=== PATIENT | female | born 1990 ===

== ENCOUNTER 2016-05-28 08:20 | Inpatient (IN) | payer MEDICAID, OTHER ==
[2016-05-28] MEDS: Lactated Ringer's 1,000 ML IV SCH ×6 (09:30→18:35)
[2016-05-28] MEDS ORDERED: Lactated Ringer's 1,000 ML IV SCH (14:15)
[2016-05-28] MEDS ORDERED: ceFAZolin 2 GM in Sodium Chloride 0.9% 100 ML IVPB ONE (14:43)
[2016-05-28 14:47] LABS: BASO % 0.5 % (0.0-2.0); EOS # 0.1 K/uL (0.0-0.7); EOS % 0.6 % (0.0-4.0); HEMATOCRIT 33.8 % (34.0-47.0); LYMPH # 1.9 K/uL (1.0-4.3); MEAN CELL VOLUME 90.8 fl (81.0-99.0); MEAN CORPUSCULAR HEMOGLOBIN 29.5 pg (27.0-31.0); MEAN CORPUSCULAR HGB CONC 32.5 g/dL (33.0-37.0); MEAN PLATELET VOLUME 9.7 fl (7.2-11.7); MONO # 0.7 K/uL (0.0-0.8); MONO % 8.6 % (0.0-10.0); NEUT # 5.9 K/uL (1.8-7.0); NEUT % 68.3 % (50.0-75.0); NRBC % 0.1 % (0.0-0.0); RED CELL DISTRIBUTION WIDTH 14.3 % (11.5-14.5); WHITE BLOOD COUNT 8.6 K/uL (4.8-10.8)
--- NOTE | 2016-05-28 14:53 | OBPN ---
Datetime: 05/28/2016 08:45 IP Progress Impression: Normal progression of labor; Reactive non-stress test IP Informed Consent Obtain: Section Delivery Membranes, Provider: Intact FHR - Baseline A Provider: 130 Gestation - Est Wks by US: 36.1 IP Progress Note Comment: Patient went well patient states her contractions are increasing in intens ity requiring more frequently she denies any vaginal bleeding or rupture membranes she reports good f etal movement heart rate reactive accelerations no decelerations Tocometer contractions occurring every 2 minutes Sterile vaginal exam patient noted to be 2-3 cm bulging membranes Assessment and plan intrauterine at 36 weeks previous delivery in labor Discussed operative delivery versus trial of laborpatient opted for repeat section discus sed the risks benefits and alternatives to surgery the patient was given the opportunity ask question s all questions answered procedure Loop Medicare We discussed the risks of prematurity poor feeding j aundice respiratory problems. She was given the opportunity ask questions all questions answered her and partner agree with plan of care will proceed with Repeat operative delivery NICHD Accel Fetus A IP Provider: [id number] FHR Category Provider Fetus A: Category I NICHD Variability Prov Fetus A: Moderate 6-25bpm Dilatation, Provider: 0 Effacement, Provider: thick NICHD Decel Fetus A IP Provider: None Datetime: 02/08/2016 17:34 Contraction Comments Provider: none Vital Signs Provider: Reviewed; Within Normal Limits Station, Provider: -4
[2016-05-28 15:20] VITALS: BP 125/76; PULSE 92; RESP 18; TEMP 98; O2SAT 100
[2016-05-28] MEDS ORDERED: Oxytocin 30 units/LR 500ML 500 ML IV ONE ×2 (15:38→18:17)
[2016-05-28] MEDS ORDERED: Morphine 1 mg/ml preservative-free Inj(Duramorph) ONE (15:53)
[2016-05-28] MEDS ORDERED: Propofol 10 mg/ml Inj (20 ML) ONE ×2 (16:26→16:36)
[2016-05-28] MEDS ORDERED: Oxytocin 10 Units/ml Inj ONE (16:39)
[2016-05-28] MEDS ORDERED: DiphenhydrAMINE 50 mg/ml Inj IVP PRN (16:59)
[2016-05-28] MEDS ORDERED: Oxycodone/Acetaminophen 5/325 mg Tab PO PRN ×3 (17:49→19:48)
--- NOTE | 2016-05-28 19:30 | OP ---
PROCEDURE DATE: 05/28/2016 PREOPERATIVE DIAGNOSES: Intrauterine at 36 weeks, history of previous section, in labor with cervical changes. POSTOPERATIVE DIAGNOSES: Intrauterine at 36 weeks, history of previous section, i n labor with cervical changes. OPERATION PERFORMED: Repeat low flap transverse section by Pfannenstiel skin incision. SURGEON: Cortney Fay MD ANESTHESIA: Spinal administered by Dr. Lundberg. ASSISTANT CHIEF OF POLICE: Dr. Tasia Fay. ESTIMATED BLOOD LOSS: 800 mL. Lin catheter put out approximately 200 mL. The patient received approximately 1500 mL of D5LR intr aoperatively. OPERATIVE FINDINGS: A baby boy, vertex presentation, weighing 2720 grams, Apgars 9 and 9. Normal ut erus, tubes, and ovaries were identified. Dr. Tasia Fay was the assistant superintendent in the procedure. She was helpful in creating exposure, obta ining hemostasis, delivering the and closure of the patient. The procedure would not have bee n possible without her. PROCEDURE: After informed consent was obtained, the patient was taken to the operating room where emily brown was given spinal anesthesia. She was then prepped and draped in the usual sterile fashion with a l eftward tilt. A Pfannenstiel skin incision was then made with a scalpel and carried down to the unde rlying layer of fascia. The fascia was nicked in the midline. The fascial incision was then extende d laterally with the curved bandage scissors. Superior aspect of the fascial incision was then grasp ed with Beverly clamps, elevated up, and the rectus muscles dissected off using sharp and blunt dissec tion. Attention was then turned to the inferior aspect of the fascial incision which in a similar fa shion was grasped with Beverly clamps, elevated up, and the rectus muscles were dissected off using renetta th sharp and blunt dissection. The rectus muscles were then in the midline, the peritoneum identified, entered sharply with the Metzenbaum scissors. Peritoneal incision was then extended sup eriorly and inferiorly with good visualization of the bladder. The bladder blade was inserted. The vesicouterine and peritoneum was identified and entered sharply with the Metzenbaum scissors. The in cision was then extended laterally and the bladder flap was created digitally. A low transverse inci raine was then made with the scalpel, incision was then extended laterally with the bandage scissors. The infant's head was then delivered atraumatically. The nose and mouth were suctioned with DeLee s uction trap. The cord was clamped and cut. The infant was then handed off to waiting pediatricians. The placenta was then removed manually. The uterus was exteriorized and cleared of all clots and de bris. The uterine incision was repaired with 0 Vicryl in a running fashion. Second layer of the rosalinda e suture was used to obtain excellent hemostasis. The abdomen was then copiously irrigated. The irr igant was removed with a suction device. The gutters were cleared of all clots and debris. The uter us was then returned to the abdomen and the peritoneum was closed with 2-0 Vicryl in a running fashio n. The muscles were reapproximated with 0 Vicryl in interrupted fashion. The fascia was closed with 0 Vicryl in a running fashion. The skin was closed with 4-0 on a Miguel needle. All sponge, lap, ne edle, and instrument counts correct x 2 and the patient was taken to recovery room in awake and stabl e condition. Cortney Fay MD cc: [id number] TT: 05/28/2016 19:29:46 edith
--- NOTE | 2016-05-28 20:15 | OBDS ---
DELIVERY PERSONNEL Delivery Doctor: Sandra Fay MD [employer] Insurance Claims Adjuster: Humaira Horan RN/ Odessa Valdez rn Anesthesiologist: Don Deng MD Resident: Tasia frias MD MATERNAL INFORMATION Delivery Anesthesia: Spinal Medications in Delivery: pitocin 30/500 Estimated Blood Loss (ml): 800 Placenta Cultured: No Maternal Complications: None Provider Comments: See operative report LABOR SUMMARY EDC: 06/24/2016 00:00 No. Babies in Womb: 1 Attempted: No Labor Anesthesia: Intrathecal LABOR INFORMATION Reason for Induction: Not Applicable Onset of Labor: 05/28/2016 07:00 Oxytocin: N/A Group B Beta Strep: Done, Result Unknown Antibiotics # of Doses: 1 Antibiotics Time of Last Dose: 1410 Steroids Given: None Reason Steroids Not Administered: Not Applicable MEMBRANES Membranes Rupture Method: Artificial Rupture of Membranes: 05/28/2016 16:32 Length of Rupture (hrs): 0.00 Amniotic Fluid Color: Clear Amniotic Fluid Amount: Moderate Amniotic Fluid Odor: None STAGES OF LABOR Stage 3 hrs: 0 Stage 3 min: 1 Total Time in Labor hrs: 9 Total Time in Labor min: 33 VAGINAL DELIVERY Episiotomy: None Laceration Extension: N/A Laceration Type: None Laceration Repair: Not Applicable Sponge Count Correct: N/A CSECTION DELIVERY Primary Indication: Other Other Primary Indication: LABOR Secondary Indication: Repeat Elective CSection Urgency: Emergency CSection Incidence: Repeat Labor: Labor Elective: N/A CSection Incision: Lower Uterine Transverse BABY A INFORMATION Infant Delivery Date/Time: 05/28/2016 16:32 Method of Delivery: Born in Route : No : N/A Forceps: N/A Vacuum Extraction: N/A Shoulder Dystocia : Yes SHOULDER DYSTOCIA BABY A Infant Delivery Date/Time: 05/28/2016 16:32 PRESENTATION/POSITION BABY A Presentation: Cephalic Cephalic Presentation: Vertex Vertex Position: Left Occipital Anterior Breech Presentation: N/A PLACENTA INFORMATION BABY A Placenta Delivery Time : 05/28/2016 16:33 Placenta Method of Delivery: Manual Removal Placenta Status: Delivered SCORES BABY A Heart Rate 1 min: >100 bpm Resp Effort 1 min: Good Cry Reflex Irritability 1 min: Cough or Sneeze or Pulls Away Muscle Tone 1 min: Active Motion Color 1 min: Body Godfrey, Extremities Blue Resuscitation Effort 1 min: N/A SCORE 1 MIN: 9 Heart Rate 5 min: >100 bpm Resp Effort 5 min: Good Cry Reflex Irritability 5 min: Cough or Sneeze or Pulls Away Muscle Tone 5 min: Active Motion Color 5 min: Body Godfrey, Extremities Blue Resuscitation Effort 5 min: N/A SCORE 5 MIN: 9 INFORMATION BABY A Gestational Age at Delivery: 36.1 Gestational Status: Outcome : Liveborn Infant Condition : Stable Infant Sex: Male IDENTIFICATION/MEDS BABY A ID Band Number: [id number] ID Band Location: Left Leg; Left Arm WEIGHT/LENGTH BABY A Birthweight (gms): 2720 Infant Weight (lb): 6 Weight (oz): 0 CORD INFORMATION BABY A No. Cord Vessels: 3 Nuchal Cord : N/A Cord Blood Taken: Yes Suction: Mouth; Nose ASSESSMENT BABY A Infant Complications: None Physical Findings at Delivery: Within Normal Limits Infant Respirations: Appears Normal Research Manufacturing Operator/ALS Called : No Infant Care By: DR hodge Transferred To: Remains with Mother
[2016-05-28] MEDS ORDERED: Measles, Mumps, and Rubella 1 EA VIAL SC ONE (20:23)
[2016-05-28] MEDS: Oxycodone/Acetaminophen 5/325 mg Tab PO PRN (21:44)
[2016-05-29] MEDS: Lactated Ringer's 1,000 ML IV SCH ×2 (04:14→11:35)
[2016-05-29] MEDS: Oxycodone/Acetaminophen 5/325 mg Tab PO PRN ×4 (07:11→21:07)
[2016-05-29 07:17] LABS: HEMATOCRIT 23.7 % (34.0-47.0); MEAN CELL VOLUME 89.1 fl (81.0-99.0); MEAN CORPUSCULAR HEMOGLOBIN 29.6 pg (27.0-31.0); MEAN CORPUSCULAR HGB CONC 33.3 g/dL (33.0-37.0); WHITE BLOOD COUNT 9.6 K/uL (4.8-10.8)
[2016-05-30] MEDS ORDERED: Simethicone 80 mg Chewtab PO PRN (06:42)
--- NOTE | 2016-05-30 08:41 | OBPPN ---
Datetime: 05/30/2016 08:10 PP Pain Prov: Within normal limits PP Nausea Prov: Denies Datetime: 05/29/2016 08:01 PP Flatus Prov: No PP BM Prov: No PP Abdomen/Uterus Prov: Normal PP Lochia Prov: Normal PP Comments Phys Exam Prov: dressing intact. PP Impression Prov: Normal progression PP Plan Prov: Continue present management PP Progress Note Prov: POD#1 Patient reports pain is well controlled. Breast and bottle feeding. Tolerating regular diet. Lin was removed this morning, pt has not voided yet. Has not tried to void yet. o: as above a: POD#1 s/p repeat . cbc revealed h.9, down from 11.0. Patient asymptomat ic but has not ambulated. p: pain control -encouraged ambulation, with caution. If dizziness or palpitations patient to inform nurse -encouraged continued -monitor urine output -mmr ordered Rubin Ronquillo PGY1 IP PP Procedures: None Vital Signs Provider PP: Reviewed Datetime: 05/28/2016 14:48 PP Breasts Prov: Normal PP Heart Prov: Normal PP Lungs Prov: Normal PP Vulva/Perineum Prov: Normal PP CVA Tenderness Prov: Normal PP Extremities Prov: Normal
[2016-05-30] MEDS ORDERED: Magnesium Hydroxide Susp 30 ml UD PO ONE (09:28)
--- NOTE | 2016-05-30 10:35 | OBPPN ---
Datetime: 05/30/2016 08:10 PP Flatus Prov: Yes PP BM Prov: No PP Heart Prov: Normal PP Lungs Prov: Normal PP Abdomen/Uterus Prov: Normal PP Lochia Prov: Normal PP Vulva/Perineum Prov: Normal PP CVA Tenderness Prov: Normal PP Extremities Prov: Normal PP C/S Incision Prov: Normal PP Impression Prov: Normal progression PP Plan Prov: Continue present management PP Progress Note Prov: OB Hospitalist photonic laboratory technician Pt seen and examined by me on rounds this AM. Agree with note. CURRY Vital Signs Provider PP: Reviewed
[2016-05-31] MEDS ORDERED: Measles, Mumps, and Rubella 1 EA VIAL SC ONE (08:33)
--- NOTE | 2016-05-31 08:42 | OBDCSUM ---
Datetime: 05/31/2016 07:31 Discharged to, Provider: Home Follow up at, Provider: Kurt Lopez Disch Instr Activity: Normal activity Disch Instr Diet: Regular Discharge Instructions, Provider: Routine instructions given Discharge Diagnosis, Provider: Term Delivered Discharge Time: 05/31/2016 07:31 Follow up in weeks, Provider: 1 week: wound check Disch Referrals: None Disch Activity Restrictions: No lifting; No sexual activity; Nothing in vagina - Howard, tampon s, douche Discharge Comment, Provider: doing well postoperatively rx for motrin, colace, iron, percocet given
--- NOTE | 2016-05-31 08:42 | OBPPN ---
Datetime: 05/31/2016 07:32 PP Pain Prov: Within normal limits PP Nausea Prov: Denies PP Flatus Prov: Yes PP BM Prov: Yes PP Abdomen/Uterus Prov: Normal PP Lochia Prov: Normal PP Extremities Prov: Normal PP C/S Incision Prov: Normal PP Impression Prov: Normal progression PP Plan Prov: Discharge PP Progress Note Prov: POD#3 s/p csection Patient doing well. Passing flatus, had BM. No dizziness with standing. Tolerating regular diet. B reastfeeding, supplementing with bottle. o: vital signs reviewed, tachycardia a: POD#3 s/p csection, doing well postoperatively p: pain control -iron/colace for anemia/constipation -motrin/percocet for pain -discharge home Rubin Ronquillo PGY1 OB Hospitalist note: This pt was seen and examined by me. Agree with above note. CURRY TAM PP Procedures: None Vital Signs Provider PP: Reviewed
--- NOTE | 2016-05-31 08:44 | OBPPN ---
Datetime: 05/31/2016 07:32 PP Progress Note Prov: POD#3 s/p csection Patient doing well. Passing flatus, had BM. No dizziness with standing. Tolerating regular diet. B reastfeeding, supplementing with bottle. o: vital signs reviewed, tachycardia a: POD#3 s/p csection, doing well postoperatively p: pain control -iron/colace for anemia/constipation -motrin/percocet for pain -discharge home Rubin Ronquillo PGY1 OB Hospitalist note: This pt was seen and examined by me. Agree with above note. MAHNDO RUbella vaccine prior to dischagre
== END 2016-05-31 14:52 | disposition home or self-care (01) | DRG 371 ==
LOC: H.EROB2 08:20 → H.L&D 15:18 → H.OB/GYN 20:40
PROVIDERS: ADMIT Obstetrics & Gynecology Gynecology; ATTEND Obstetrics & Gynecology Gynecology
PROC: 10D00Z1 Extraction of Products of Conception, Low, Open Approach (ICD-10-PCS; principal; 2016-05-28)
PROC: 4A1HXCZ Monitoring of Products of Conception, Cardiac Rate, External Approach (ICD-10-PCS; 2016-05-28)
DX: O34.211 Maternal care for low transverse scar from previous cesarean delivery (principal); O60.14X0 Preterm labor third trimester with preterm delivery third trimester, not applicable or unspecified; O66.0 Obstructed labor due to shoulder dystocia; N85.8 Other specified noninflammatory disorders of uterus; Z3A.36 36 weeks gestation of pregnancy; Z37.0 Single live birth; O10.92 Unspecified pre-existing hypertension complicating childbirth

== ENCOUNTER 2017-03-21 00:07 | Emergency (ER) | payer SELFPAY ==
[2017-03-21 00:22] VITALS: BMI 27.8
[2017-03-21 00:23] VITALS: BP 137/87; O2SAT 99
[2017-03-21] MEDS ORDERED: Dexamethasone 10 MG in Dextrose 5% In Water 50 ML IV STA (00:30)
[2017-03-21] MEDS ORDERED: Sodium Chloride 0.9% 1,000 ML IV STA (00:31)
--- NOTE | 2017-03-21 00:32 | ED PDOC ---
HPI: CCC, URI, Sore Throat Time Seen by Provider: 03/21/17 00:31 Chief Complaint (Nursing): Shortness Of Breath Chief Complaint (Provider): sorethroat History Per: Patient (27 y/o female here for sore throat x 4 days associated with fever and loss of voice. Notes mild cough. Denies any vomiting/diarrhea. Able to drink/eat but states she has decreased intake due to pain.) Past Medical History Reviewed: Historical Data, Nursing Documentation, Vital Signs Vital Signs: Last Vital Signs Temp 98.8 F 03/21/17 03:12 Pulse 117 H 03/21/17 03:12 Resp 18 03/21/17 02:05 BP 137/87 03/21/17 00:26 Pulse Ox 99 03/21/17 02:01 - Medical History PMH: HTN Denies: Depression, Diabetes - Surgical History Surgical History: Appendectomy - Family History Family History: States: No Known Family Hx - Home Medications Home Medications: Ambulatory Orders Medication Instructions Recorded No122/Iron/Folic Acid 1 tab PO DAILY 02/08/16 [ Multi Tablet] Docusate [Colace] 100 mg PO BID #60 cap 05/31/16 Ferrous Sulfate [Feosol] 325 mg PO BID #60 tab 05/31/16 Ibuprofen [Motrin Tab] 600 mg PO Q6H PRN #30 tab 05/31/16 oxyCODONE/Acetaminophen [Percocet 1 tab PO Q4 PRN #20 tab 05/31/16 5/325 mg Tab] Ibuprofen [Motrin] 600 mg PO Q8 PRN #21 tab 03/21/17 - Allergies Allergies/Adverse Reactions: Allergies Allergy/AdvReac Type Severity Reaction Status Date / Time No Known Allergies Allergy Verified 03/21/17 00:26 Review of Systems ROS Statement: Except As Marked, All Systems Reviewed And Found Negative Physical Exam - Reviewed Nursing Documentation Reviewed: Yes Vital Signs Reviewed: Yes - Physical Exam Appears: Positive for: Well, Non-toxic, No Acute Distress Head Exam: Positive for: ATRAUMATIC, NORMAL INSPECTION, NORMOCEPHALIC Skin: Positive for: Normal Color, Warm, DRY Eye Exam: Positive for: EOMI, Normal appearance, PERRL ENT: Positive for: Normal ENT Inspection Neck: Positive for: Normal, Painless ROM Cardiovascular/Chest: Positive for: Regular Rate, Rhythm Respiratory: Positive for: CNT, Normal Breath Sounds Gastrointestinal/Abdominal: Positive for: Normal Exam, Bowel Sounds, Soft Back: Positive for: Normal Inspection Extremity: Positive for: Normal ROM Neurologic/Psych: Positive for: Alert, Oriented - Laboratory Results Result Diagrams: 03/21/17 04:15 03/21/17 04:15 - ECG O2 Sat by Pulse Oximetry: 99 - Progress ED Course And Treament: RAPID STREP NEG INFLUENZA A/B NEG PATIEN NOTED TACHYCARDIC 125 NS 1 LITER WIDE OPEN REPEAT HR 109 NS 1 LITER 2ND LABS REVIEWED. TSH MILD LOW. EKG SINUS TACHYCARDIA 102 BPM NO ECTOPY NO ACUTE CHANGES. Disposition - Clinical Impression Clinical Impression: Pharyngitis - Patient ED Disposition Is Patient to be Admitted: No - Disposition Disposition: Routine/Home Disposition Time: 05:31 Condition: FAIR Prescriptions: Ibuprofen [Motrin] 600 mg PO Q8 PRN #21 tab PRN Reason: Fever >100.4 F Instructions: Pharyngitis (ED) Forms: [facility] (Pakistani), [facility] ED School/Work Excuse
[2017-03-21 02:07] VITALS: RESP 18
[2017-03-21] MEDS ORDERED: Sodium Chloride 0.9% 1,000 ML IV SCH (03:00)
[2017-03-21 03:12] VITALS: PULSE 117; TEMP 98.8
[2017-03-21 04:31] LABS: BASO % 0.2 % (0.0-2.0); HEMOGLOBIN 12.5 g/dL (12.0-16.0); LYMPH # 0.8 K/uL (1.0-4.3); LYMPH % 5.8 % (20.0-40.0); MEAN CELL VOLUME 90.7 fl (81.0-99.0); MEAN CORPUSCULAR HEMOGLOBIN 30.9 pg (27.0-31.0); MEAN CORPUSCULAR HGB CONC 34.1 g/dL (33.0-37.0); MEAN PLATELET VOLUME 8.3 fl (7.2-11.7); MONO # 0.3 K/uL (0.0-0.8); MONO % 2.3 % (0.0-10.0); NEUT # 12.5 K/uL (1.8-7.0); NEUT % 91.7 % (50.0-75.0); PLATELET COUNT 219 K/uL (130-400); RBC 4.03 Mil/uL (3.80-5.20); WHITE BLOOD COUNT 13.6 K/uL (4.8-10.8)
[2017-03-21 04:40] LABS: BLOOD UREA NITROGEN 10 mg/dl (7-17); GFR AFRICAN-AMERICAN > 60; GFR NON-AFRICAN AMERICAN > 60; MAGNESIUM 1.6 MG/DL (1.6-2.3)
[2017-03-21 05:07] LABS: LYMPHOCYTE 3 % (20-50); MONOCYTE 3 % (0-10); NEUTROPHIL 90 % (42-75); PLATELET ESTIMATE NORMAL (NORMAL); REACTIVE LYMPHOCYTES 4 % (0-0); TOTAL CELLS COUNTED 100
[2017-03-21 05:09] LABS: TOXIC GRANULATION PRESENT
--- NOTE | 2017-03-21 09:29 | CARD ---
APPROVED REPORT EKG Measurement Heart [id number] <Conclusion> Sinus tachycardia Otherwise normal ECG
== END 2017-03-21 05:45 | disposition home or self-care (01) ==
LOC: H.ER 00:07
DX: J02.9 Acute pharyngitis, unspecified (principal); R05 Cough; R00.0 Tachycardia, unspecified; I10 Essential (primary) hypertension
CPT/HCPCS: 80048; 81025; 83735; 84443; 85025; 85378; 87070; 87430; 87804; 93005; 99284; J1100; J7040